=== PATIENT | male | born 1970 | race African-American/Black ===

== ENCOUNTER 2018-03-04 19:46 | Emergency (ER) | payer SELFPAY ==
[~2018-03-04] VITALS: Ht 167.6 cm; Wt 81.6 kg
[2018-03-04] MEDS ORDERED: NKM (19:55)
[2018-03-04 20:00] VITALS: BP 158/86
[2018-03-04] MEDS ORDERED: Morphine Sulfate 4mg/ml Inj (IV/IM USE ONLY) IVP ONE (20:00)
--- NOTE | 2018-03-04 20:00 | NUR ---
ED Nurse Note: pt brought in by family member, pt c/o n/v and abd pain 10/10 started today couple hours ago, pt denies eating anything abnormal. Pt AA&ox4, gcs=15, skin warm and dry, resp even and unlabored, +n/v, abd tender on palpation, +active bs, will continue to monitor. ERMD notified regarding pt's condition.
--- NOTE | 2018-03-04 20:30 | NUR ---
ED Nurse Note: pt reports pain and nausea is better now, pt stopped vomiting, VSS, resp even and unlabored, will continue to monitor.
[2018-03-04 20:49] LABS: HEMATOCRIT 41.2 % (42.0-52.0); HEMOGLOBIN 14.2 G/DL (14.2-18.0); MEAN CORPUSCULAR VOLUME 96 FL (80-99); PLATELET COUNT 316 K/UL (150-450); RED BLOOD COUNT 4.28 M/UL (4.70-6.10); RED CELL DISTRIBUTION WIDTH 10.8 % (11.6-14.8); WHITE BLOOD COUNT 10.6 K/UL (4.8-10.8)
[2018-03-04 20:51] LABS: APPEARANCE,URINE CLEAR; BILIRUBIN, URINE NEGATIVE (NEGATIVE); COLOR,URINE PALE YELLOW; GLUCOSE, URINE (UA) NEGATIVE (NEGATIVE); KETONES,URINE 2+ (NEGATIVE); LEUKOCYTE ESTERASE ,URINE 1+ (NEGATIVE); NITRITE,URINE NEGATIVE (NEGATIVE); PH,URINE 8 (4.5-8.0); PROTEIN,URINE 2+ (NEGATIVE); UROBILINOGEN,URINE NORMAL MG/DL (0.0-1.0)
[2018-03-04 20:52] LABS: LYMPHOCYTES % (AUTO) 8.6 % (20.0-45.0); MONOCYTES % (AUTO) 2.3 % (1.0-10.0); NEUTROPHILS % (AUTO) 88.2 % (45.0-75.0)
[2018-03-04 21:00] VITALS: BP 155/86
[2018-03-04 21:01] LABS: ANION GAP 11 mmol/L (5-15); BLOOD UREA NITROGEN 10 mg/dL (7-18); CALCIUM 9.7 MG/DL (8.5-10.1); CARBON DIOXIDE 25 MMOL/L (21-32); CHLORIDE 102 MMOL/L (98-107); CREATININE 1.3 MG/DL (0.55-1.30); POTASSIUM 3.7 MMOL/L (3.5-5.1); SODIUM 138 MMOL/L (136-145)
[2018-03-04 21:13] LABS: ALANINE AMINOTRANSFERASE 26 U/L (12-78); ALBUMIN 4.4 G/DL (3.4-5.0); ALBUMIN/GLOBULIN RATIO 1.2 (1.0-2.7); ALKALINE PHOSPHATASE 65 U/L (46-116); ASPARTATE AMINO TRANSFERASE 14 U/L (15-37)
--- NOTE | 2018-03-04 21:30 | NUR ---
ED Nurse Note: pt is resting in bed, vss, iv intact and patent, will cont monitor.
--- NOTE | 2018-03-04 21:31 | NUR ---
ED Nurse Note: pending discharge, waiting on drug screen urine.
--- NOTE | 2018-03-04 21:48 | Emergency Room Report ---
History of Present Illness General Chief Complaint: Abdominal Pain Source: Patient Present Illness HPI The patient presents with several hours of epigastric pain and vomiting. He denies coffee grounds or hematemesis. He also states his stools have been dark. He denies any fevers or chills. He has been around people who have been smoking cannabis. He denies alcohol ingestion. The pain is burning and epigastric not radiating to his back. He feels better laying on his stomach. He is not taking any analgesics or other medication to help with the pain. He states this is happened once before. He is vague on how it was treated. No chest pain, palpitations, dysuria, shortness of breath, depression, visual changes, headache. The pain is causing some anxiety. Patient denies major medical problems. Allergies: Coded Allergies: No Known Allergies (Unverified , 03/04/18) Patient History Past Medical History: see triage record Social History: Reports: smoking, drug use Social History Narrative From home -brought by friends Reviewed Nursing Documentation: PMH: Agreed; PSxH: Agreed Nursing Documentation-PMH Past Medical History: No Stated History Review of Systems All Other Systems: negative except mentioned in HPI Physical Exam Vital Signs Date Time Temp Pulse Resp B/P (MAP) Pulse Ox O2 Delivery O2 Flow Rate FiO2 03/04/18 19:53 98.4 90 20 158/86 95 Room Air Sp02 EP Interpretation: reviewed, normal General Appearance: GCS 15, non-toxic, mild distress, other - Smells of cannabis Head: normocephalic Eyes: bilateral eye PERRL, bilateral eye Scleral Injection ENT: moist mucus membranes Neck: supple Respiratory: lungs clear, normal breath sounds Cardiovascular #1: regular rate, rhythm Cardiovascular #2: 2+ radial (R) Gastrointestinal: normal inspection, normal bowel sounds, soft, no mass, non- distended, no guarding, no rebound, tenderness - Epigastric, scaphoid Genitourinary: no CVA tenderness Musculoskeletal: back normal, normal range of motion Neurologic: alert, oriented x3, grossly normal Psychiatric: mood/affect normal Skin: normal inspection, warm/dry Medical Decision Making Diagnostic Impression: Primary Impression: Vomiting Qualified Codes: R11.2 - Nausea with vomiting, unspecified Additional Impression: Epigastric pain ER Course Patient presents with epigastric pain and vomiting. Differential includes gastritis, gastroenteritis, peptic ulcer disease, pancreatitis, GERD amongst others. Evaluation will be with labs. Treatment will be with IV hydration, Zofran, Pepcid and morphine. Labs was normal white count, hemoglobin and hematocrit. CMP and lipase normal. Urinalysis negative. Urine tox positive for THC. Improved with treatment. Patient advised to avoid cannabis, aspirin alcohol Advil Aleve [place] and aspirin. Patient stable for outpatient observation and treatment. Laboratory Tests Test 03/04/18 20:35 03/04/18 20:50 White Blood Count 10.6 K/UL (4.8-10.8) Red Blood Count 4.28 M/UL (4.70-6.10) L Hemoglobin 14.2 G/DL (14.2-18.0) Hematocrit 41.2 % (42.0-52.0) L Mean Corpuscular Volume 96 FL (80-99) Mean Corpuscular Hemoglobin 33.2 PG (27.0-31.0) H Mean Corpuscular Hemoglobin Concent 34.5 G/DL (32.0-36.0) Red Cell Distribution Width 10.8 % (11.6-14.8) L Platelet Count 316 K/UL (150-450) Mean Platelet Volume 6.7 FL (6.5-10.1) Neutrophils (%) (Auto) 88.2 % (45.0-75.0) H Lymphocytes (%) (Auto) 8.6 % (20.0-45.0) L Monocytes (%) (Auto) 2.3 % (1.0-10.0) Eosinophils (%) (Auto) 0.0 % (0.0-3.0) Basophils (%) (Auto) 1.0 % (0.0-2.0) Urine Color Pale yellow Urine Appearance Clear Urine pH 8 (4.5-8.0) Urine Specific [place] 1.010 (1.005-1.035) Urine Protein 2+ (NEGATIVE) H Urine Glucose (UA) Negative (NEGATIVE) Urine Ketones 2+ (NEGATIVE) H Urine Blood Negative (NEGATIVE) Urine Nitrite Negative (NEGATIVE) Urine Bilirubin Negative (NEGATIVE) Urine Urobilinogen Normal MG/DL (0.0-1.0) Urine Leukocyte Esterase 1+ (NEGATIVE) H Urine RBC 0-2 /HPF (0 - 0) H Urine WBC 2-4 /HPF (0 - 0) Urine Squamous Epithelial Cells Occasional /LPF Urine Bacteria None /HPF (NONE) Urine Mucus Few /LPF (NONE/OCC) H Sodium Level 138 MMOL/L (136-145) Potassium Level 3.7 MMOL/L (3.5-5.1) Chloride Level 102 MMOL/L (98-107) Carbon Dioxide Level 25 MMOL/L (21-32) Anion Gap 11 mmol/L (5-15) Blood Urea Nitrogen 10 mg/dL (7-18) Creatinine 1.3 MG/DL (0.55-1.30) Estimate Glomerular Filtration Rate 59.4 mL/min (>60) Glucose Level 131 MG/DL (74-106) H Calcium Level 9.7 MG/DL (8.5-10.1) Total Bilirubin 1.0 MG/DL (0.2-1.0) Aspartate Amino Transferase (AST) 14 U/L (15-37) L Alanine Aminotransferase (ALT) 26 U/L (12-78) Alkaline Phosphatase 65 U/L (46-116) Total Protein 8.0 G/DL (6.4-8.2) Albumin 4.4 G/DL (3.4-5.0) Globulin 3.6 g/dL Albumin/Globulin Ratio 1.2 (1.0-2.7) Lipase 176 U/L (73-393) Urine Opiates Screen Negative (NEGATIVE) Urine Barbiturates Screen Negative (NEGATIVE) Phencyclidine (PCP) Screen Negative (NEGATIVE) Urine Amphetamines Screen Negative (NEGATIVE) Urine Benzodiazepines Screen Negative (NEGATIVE) Urine Cocaine Screen Negative (NEGATIVE) Urine Marijuana (THC) Screen Positive (NEGATIVE) H Prothrombin Time 11.0 SEC (9.30-11.50) Prothrombin Time INR 1.0 (0.9-1.1) PTT 29 SEC (23-33) Chest X-Ray Diagnostic Results Chest X-Ray Diagnostic Results : Chest X-Ray Ordered: Yes # of Views/Limited/Complete: 1 View Indication: Other EP Interpretation: Yes Interpretation: no consolidation, no effusion, no pneumothorax Impression: No acute disease Electronically Signed by: Electronically signed by Ajit Altman MD Other X-Ray Diagnostic Results Other X-Ray Diagnostic Results : X-Ray ordered: Abdomen # of Views/Limited Vs Complete: 2 View Indication: Pain Interpretation: nonspecific bowel gas, no sbo, other - No masses Impression: No acute disease Electronically Signed by: Electronically signed by Ajit Altman MD Last Vital Signs Date Time Temp Pulse Resp B/P (MAP) Pulse Ox O2 Delivery O2 Flow Rate FiO2 03/04/18 23:10 98.2 68 18 144/78 100 Room Air Status: improved Disposition: HOME, SELF-CARE Condition: Improved Scripts Famotidine (PEPCID AC) 20 Mg Tablet 20 MG PO DAILY, #20 TAB Prov: Ajit Altman MD 03/04/18 Tramadol Hcl* (ULTRAM*) 50 Mg Tablet 50 MG ORAL Q6H PRN for For Pain, #6 TAB 0 Refills Prov: Ajit Altman MD 03/04/18 Ondansetron Odt* (ZOFRAN ODT*) 4 Mg Tab.rapdis 4 MG BC EVERY 8 HOURS, #6 TAB 0 Refills Prov: Ajit Altman MD 03/04/18 Referrals: NOT CHOSEN IPA/,REFERRING (PCP) Ajit Altman MD Mar 04, 2018 21:48
[2018-03-04 22:00] VITALS: BP 146/68
[2018-03-04] MEDS ORDERED: ONDANSETRON ODT4 MG BC (22:11)
[2018-03-04] MEDS ORDERED: TRAMADOL HCL50 MG ORAL (22:11)
[2018-03-04] MEDS ORDERED: PEPCID AC20 M2 PO (22:11)
[2018-03-04 22:56] VITALS: BP 144/82
[2018-03-04 23:10] VITALS: BP 144/78
--- NOTE | 2018-03-04 23:12 | NUR ---
ED Nurse Note: pt states his niece will pick pt up
--- NOTE | 2018-03-04 23:12 | NUR ---
ED Nurse Note: Pt discharge instruction provided w/ prescription, id band removed, iv d/c and dressing applied, pt tolerated well, pt education done via discussion and handout, pt verbalized understanding and agrees with plan, pt advised to follow up with pcp regarding pt's condition, pt advised to return to ed if s/s worsen or new s/s develop.
--- NOTE | 2018-03-06 15:48 | Diagnostic Imaging Report ---
Indication: Chest pain Comparison: None A single view chest radiograph was obtained. Findings: Cardiomediastinal appearance is within normal limits for age. The lungs are clear but hypoinflated. Pulmonary vascularity is appropriate. The diaphragmatic contour is smooth and costophrenic angles are sharp. No pleural effusions are identified. The bones are unremarkable. Impression: No acute findings with some limitations
--- NOTE | 2018-03-06 15:49 | Diagnostic Imaging Report ---
Indication: Abdominal pain Comparison: None Single view of the abdomen obtained Findings: Bowel gas pattern is nonspecific. No mass, ectopic calcifications, or abnormal gas collections are identified. The bones are unremarkable. Impression: No acute findings
== END 2018-03-04 23:16 | disposition home or self-care (01) ==
LOC: EMR 20:10
DX: R11.10 Vomiting, unspecified (principal); R10.13 Epigastric pain; F17.200 Nicotine dependence, unspecified, uncomplicated; F12.90 Cannabis use, unspecified, uncomplicated
CPT/HCPCS: 36415; 71045; 74018; 80053; 80307; 81003; 83690; 85025; 85610; 85730; 96361; 96374; 96375; 99284; J2270; J2405; S0028

== ENCOUNTER 2018-03-31 17:12 | Inpatient (IN) | payer SELFPAY ==
[~2018-03-31] VITALS: Ht 167.6 cm; Wt 67.6 kg
[~2018-03-31 17:12] MED LIST: NKM; ONDANSETRON ODT4 MG BC; PEPCID AC20 M2 PO; TRAMADOL HCL50 MG ORAL
--- NOTE | 2018-03-31 17:20 | NUR ---
ED Nurse Note: Pt walked in c/o n/v and abd pain x2 days but reports this is chronic and has been here before, pt states he didn't go see his pcp after discharged last time. Pt AA&ox4, gcs=15, skin warm and dry, resp even and unlabored, +n, -v/d at this time, vss, will cont monitor.
[2018-03-31] MEDS ORDERED: Haloperidol Lactate 5 MG in D5W 55 ML IVPB ONE (17:30)
--- NOTE | 2018-03-31 17:32 | Emergency Room Report ---
History of Present Illness General Chief Complaint: Nausea, Vomiting, and Diarrhea Source: Patient Present Illness HPI Patient is a 48-year-old male who presented after increased nausea vomiting and diarrhea. Patient reports of increased abdominal discomfort in the epigastric area which he describes as a sharp pain. He had associated vomiting as well as a burning sensation in his chest. Patient reports having similar symptoms in the past. He reports having multiple episodes of vomiting. He denies any fever. He denies any black or bloody stools. He denies any alcohol use. Patient states he is discontinued marijuana since last hospital visit for the same symptoms. Allergies: Coded Allergies: No Known Allergies (Unverified , 03/04/18) Patient History Past Medical History: see triage record Reviewed Nursing Documentation: PMH: Agreed; PSxH: Agreed Nursing Documentation-PMH Past Medical History: No Stated History Review of Systems All Other Systems: negative except mentioned in HPI Physical Exam Vital Signs Date Time Temp Pulse Resp B/P (MAP) Pulse Ox O2 Delivery O2 Flow Rate FiO2 03/31/18 17:15 98.2 65 18 155/90 99 Room Air Sp02 EP Interpretation: reviewed, normal General Appearance: normal inspection, well appearing, no apparent distress, alert, GCS 15 Head: atraumatic ENT: normal ENT inspection, hearing grossly normal, normal voice Neck: normal inspection, full range of motion, supple, no bony tend Respiratory: normal inspection, lungs clear, normal breath sounds, no respiratory distress, no retraction, no wheezing Cardiovascular #1: regular rate, rhythm, no edema Gastrointestinal: normal inspection, normal bowel sounds, non tender, soft, no guarding, no hernia Genitourinary: no CVA tenderness Musculoskeletal: normal inspection, back normal, normal range of motion Neurologic: normal inspection, alert, oriented x3, responsive, director of manufacturing III-XII nml as tested, speech normal Psychiatric: normal inspection, judgement/insight normal, mood/affect normal Skin: normal inspection, normal color, no rash Medical Decision Making Diagnostic Impression: Primary Impression: Pancreatitis ER Course Patient presented for abdominal pain. Differential diagnoses included ischemic bowel, appendicitis, perforated viscus, abdominal aortic aneurysm, inferior myocardial infarction, viral gastroenteritis. Because of complexity of patient' s case laboratory testing and imaging studies were ordered.CT imaging of the abdomen pelvis showed small amount of pelvic free fluid. Pancreas was unremarkable. Laboratory testing was notable for elevated lipase consistent with pancreatitis. Patient denies any alcohol use. He had previous episodes of what appeared to be marijuana hyperemesis. Patient was given IV Haldol with improvement in his nausea. Patient denies recent marijuana use. Dr. Ajit Dave was contacted for inpatient management. Labs Test 03/31/18 18:05 White Blood Count 11.1 K/UL (4.8-10.8) Red Blood Count 4.48 M/UL (4.70-6.10) Hemoglobin 14.7 G/DL (14.2-18.0) Hematocrit 42.6 % (42.0-52.0) Mean Corpuscular Volume 95 FL (80-99) Mean Corpuscular Hemoglobin 32.8 PG (27.0-31.0) Mean Corpuscular Hemoglobin Concent 34.6 G/DL (32.0-36.0) Red Cell Distribution Width 10.3 % (11.6-14.8) Platelet Count 345 K/UL (150-450) Mean Platelet Volume 5.7 FL (6.5-10.1) Neutrophils (%) (Auto) 75.5 % (45.0-75.0) Lymphocytes (%) (Auto) 18.5 % (20.0-45.0) Monocytes (%) (Auto) 4.7 % (1.0-10.0) Eosinophils (%) (Auto) 0.0 % (0.0-3.0) Basophils (%) (Auto) 1.2 % (0.0-2.0) Urine Color Yellow Urine Appearance Clear Urine pH 6 (4.5-8.0) Urine Specific [place] 1.025 (1.005-1.035) Urine Protein 1+ (NEGATIVE) Urine Glucose (UA) Negative (NEGATIVE) Urine Ketones 3+ (NEGATIVE) Urine Blood 1+ (NEGATIVE) Urine Nitrite Negative (NEGATIVE) Urine Bilirubin Negative (NEGATIVE) Urine Urobilinogen 1 MG/DL (0.0-1.0) Urine Leukocyte Esterase 1+ (NEGATIVE) Urine RBC 0-2 /HPF (0 - 0) Urine WBC 2-4 /HPF (0 - 0) Urine Squamous Epithelial Cells None /LPF (NONE/OCC) Urine Bacteria Occasional /HPF (NONE) Sodium Level 135 MMOL/L (136-145) Potassium Level 3.2 MMOL/L (3.5-5.1) Chloride Level 95 MMOL/L (98-107) Carbon Dioxide Level 29 MMOL/L (21-32) Anion Gap 11 mmol/L (5-15) Blood Urea Nitrogen 14 mg/dL (7-18) Creatinine 1.2 MG/DL (0.55-1.30) Estimat Glomerular Filtration Rate > 60 mL/min (>60) Glucose Level 110 MG/DL (74-106) Calcium Level 9.3 MG/DL (8.5-10.1) Total Bilirubin 1.0 MG/DL (0.2-1.0) Aspartate Amino Transf (AST/SGOT) 15 U/L (15-37) Alanine Aminotransferase (ALT/SGPT) 21 U/L (12-78) Alkaline Phosphatase 71 U/L (46-116) Troponin I 0.022 ng/mL (0.000-0.056) Total Protein 7.9 G/DL (6.4-8.2) Albumin 4.1 G/DL (3.4-5.0) Globulin 3.8 g/dL Albumin/Globulin Ratio 1.1 (1.0-2.7) Lipase 1394 U/L (73-393) Last Vital Signs Date Time Temp Pulse Resp B/P (MAP) Pulse Ox O2 Delivery O2 Flow Rate FiO2 03/31/18 17:15 98.2 65 18 155/90 99 Room Air Status: improved Disposition: ADMITTED INPATIENT Condition: Stable Huy Acevedo MD Mar 31, 2018 17:32
[2018-03-31 18:08] VITALS: BP 147/89
[2018-03-31 18:26] LABS: APPEARANCE,URINE CLEAR; BILIRUBIN, URINE NEGATIVE (NEGATIVE); GLUCOSE, URINE (UA) NEGATIVE (NEGATIVE); KETONES,URINE 3+ (NEGATIVE); LEUKOCYTE ESTERASE ,URINE 1+ (NEGATIVE); NITRITE,URINE NEGATIVE (NEGATIVE); PH,URINE 6 (4.5-8.0); PROTEIN,URINE 1+ (NEGATIVE); UROBILINOGEN,URINE 1 MG/DL (0.0-1.0)
[2018-03-31 18:31] LABS: COLOR,URINE YELLOW
[2018-03-31 18:33] LABS: BASOPHILS % (AUTO) 1.2 % (0.0-2.0); HEMATOCRIT 42.6 % (42.0-52.0); HEMOGLOBIN 14.7 G/DL (14.2-18.0); LYMPHOCYTES % (AUTO) 18.5 % (20.0-45.0); MEAN CORPUSCULAR VOLUME 95 FL (80-99); MONOCYTES % (AUTO) 4.7 % (1.0-10.0); NEUTROPHILS % (AUTO) 75.5 % (45.0-75.0); PLATELET COUNT 345 K/UL (150-450); RED BLOOD COUNT 4.48 M/UL (4.70-6.10); RED CELL DISTRIBUTION WIDTH 10.3 % (11.6-14.8); WHITE BLOOD COUNT 11.1 K/UL (4.8-10.8)
[2018-03-31 18:45] LABS: ANION GAP 11 mmol/L (5-15); BLOOD UREA NITROGEN 14 mg/dL (7-18); CALCIUM 9.3 MG/DL (8.5-10.1); CARBON DIOXIDE 29 MMOL/L (21-32); CHLORIDE 95 MMOL/L (98-107); CREATININE 1.2 MG/DL (0.55-1.30); POTASSIUM 3.2 MMOL/L (3.5-5.1); SODIUM 135 MMOL/L (136-145)
[2018-03-31 18:49] LABS: ALANINE AMINOTRANSFERASE 21 U/L (12-78); ALBUMIN 4.1 G/DL (3.4-5.0); ALBUMIN/GLOBULIN RATIO 1.1 (1.0-2.7); ALKALINE PHOSPHATASE 71 U/L (46-116); ASPARTATE AMINO TRANSFERASE 15 U/L (15-37)
[2018-03-31] MEDS ORDERED: Morphine Sulfate 4mg/ml Inj (IV/IM USE ONLY) IVP ONE (19:00)
[2018-03-31] MEDS ORDERED: Isovue-300 100ml vial INJ PRN (20:00)
[2018-03-31 20:08] VITALS: BP 144/89
--- NOTE | 2018-03-31 20:22 | NUR ---
ED Nurse Note: PT off to CT.
--- NOTE | 2018-03-31 21:04 | NUR ---
ED Nurse Note: pt back from CT, reports pain is better, VSS, will cont monitor. denies n/v/d at this time.
--- NOTE | 2018-03-31 21:08 | NUR ---
ED Nurse Note: belonging list completed, pt refused to go over wallet.
--- NOTE | 2018-03-31 21:13 | NUR ---
ED Nurse Note: Report given to Kylah from MS floor to continue care.
--- NOTE | 2018-03-31 22:17 | NUR ---
ED Nurse Note: pt transferred to VT, all belongings sent with pt, pt vss, resp even and unlabored, no neuro changes, airway intact, ambulatory.
--- NOTE | 2018-03-31 22:20 | NUR ---
NURSE NOTES: ADMITTED 48 YEAR OLD MALE TO ROOM 421 BED 1 VIA GURNEY FROM EMERGENCY ROOM WITH DIAGNOSIS OF PANCREATITIS; ADMITTED UNDER DR. FABIÁN SHEARER. PATIENT NPO UNTIL FURTHER ORDERS FROM MD. VITALS STABLE, AFEBRILE, NO SIGNS AND SYMPTOMS OF ACUTE CARDIO RESPIRATORY DISTRESS/SHORTNESS OF BREATH, DENIES CHEST PAIN, NO PERIPHERAL EDEMA NOTED. BOWEL SOUNDS AUDIBLE, NON TENDER, CURRENT ABDOMINAL PAIN STATUS 7/10, NO REPORT OF DIARRHEA/VOMITING DURING ER STAY. ORIENTATED PATIENT TO ROOM/ENVIRONMENT. SIDE RAILS UP X2 FOR MOBILITY, BED IN LOWEST POSITION FOR SAFETY. CALL LIGHT WITHIN REACH. ENCOURAGED PATIENT TO UTILIZE CALL LIGHT FOR ASSISTANCE, VERBALIZED UNDERSTANDING. FREQUENT ROUNDING FOR SAFETY/NEEDS.
[2018-03-31 22:50] VITALS: BP 139/84
--- NOTE | 2018-03-31 23:00 | NUR ---
NURSE NOTES: TELEPHONE CALL PLACED TO DR. SHEARER FOR ADMITTING ORDERS, LEFT MESSAGE ON EMERGENCY VOICE MAIL, WILL AWAIT RETURN CALL. NAD.
--- NOTE | 2018-03-31 23:49 | NUR ---
NURSE NOTES: FOLLOW UP CALL PLACED TO MD; LEFT SECOND MESSAGE REGARDING ADMITTING ORDERS.
[2018-04-01] VITALS: BP 131/75
[2018-04-01] MEDS ORDERED: Morphine Sulfate 4mg/ml Inj (IV/IM USE ONLY) IVP PRN (00:15)
[2018-04-01] MEDS: NS w/KCl 20mEq 1,000 ML IV SCH ×3 (00:43→13:20)
[2018-04-01 04:00] VITALS: BP 144/89
--- NOTE | 2018-04-01 06:27 | NUR ---
NURSE NOTES: URINE SPECIMEN TO LAB/URINE DRUG SCREEN-
--- NOTE | 2018-04-01 06:28 | NUR ---
NURSE NOTES: RESTED WELL, NO SIGNIFICANT CHANGE OF CONDITION NOTED THROUGHOUT THE NIGHT. SAFETY MAINTAINED. NAD.
--- NOTE | 2018-04-01 07:30 | NUR ---
HAND-OFF: Report given to HOSEA LOCKWOOD.
--- NOTE | 2018-04-01 07:50 | NUR ---
NURSE NOTES: Received patient on bed, awake. IV site intact and patent Bed in low and locked position, call light within reach. No signs of respiratory distress or pain. Room board updated, will continue to monitor.
[2018-04-01 08:00] VITALS: BP 142/86
[2018-04-01 08:36] LABS: BASOPHILS % (AUTO) 1.3 % (0.0-2.0); EOSINOPHILS % (AUTO) 0.3 % (0.0-3.0); HEMATOCRIT 41.7 % (42.0-52.0); HEMOGLOBIN 14.3 G/DL (14.2-18.0); LYMPHOCYTES % (AUTO) 31.3 % (20.0-45.0); MEAN CORPUSCULAR VOLUME 96 FL (80-99); NEUTROPHILS % (AUTO) 60.2 % (45.0-75.0); PLATELET COUNT 362 K/UL (150-450); RED BLOOD COUNT 4.36 M/UL (4.70-6.10); RED CELL DISTRIBUTION WIDTH 10.7 % (11.6-14.8)
[2018-04-01] MEDS ORDERED: Heparin 5000 units/ml inj SUBQ SCH (09:00)
--- NOTE | 2018-04-01 09:20 | NUR ---
NURSE NOTES: Patient refused scheduled heparin dose. Risks versus benefits explained.
[2018-04-01 09:30] LABS: ALANINE AMINOTRANSFERASE 22 U/L (12-78); ALBUMIN 3.7 G/DL (3.4-5.0); ALKALINE PHOSPHATASE 66 U/L (46-116); AMYLASE 135 U/L (25-115); ANION GAP 10 mmol/L (5-15); ASPARTATE AMINO TRANSFERASE 13 U/L (15-37); BILIRUBIN,DIRECT 0.2 MG/DL (0.0-0.3); BILIRUBIN,TOTAL 1.2 MG/DL (0.2-1.0); BLOOD UREA NITROGEN 17 mg/dL (7-18); CALCIUM 9.1 MG/DL (8.5-10.1); CARBON DIOXIDE 25 MMOL/L (21-32); CHLORIDE 100 MMOL/L (98-107); CREATININE 1.1 MG/DL (0.55-1.30); POTASSIUM 3.7 MMOL/L (3.5-5.1); SODIUM 135 MMOL/L (136-145)
--- NOTE | 2018-04-01 10:01 | Diagnostic Imaging Report ---
Clinical Indication: Abdominal pain, increased nausea vomiting and diarrhea Technique: No oral contrast utilized, per emergency room physician request IV administration nonionic contrast. Venous phase spiral acquisition obtained through the abdomen and pelvis. Multiplanar reconstructions were generated. Total dose length product 686.67 mGycm. CTDIvol(s) 9.84,10.89 mGy. Dose reduction achieved using automated exposure control Comparison: none Findings: Normal appendix. No evidence of diverticulosis or diverticulitis. No small bowel distention. No free or loculated intraperitoneal gas or fluid is evident. The distal esophagus, stomach, duodenum are unremarkable. The liver demonstrates multiple subcentimeter low-attenuation lesions which are too small to characterize. The gallbladder, bile ducts, pancreas, spleen, adrenals, kidneys are all unremarkable. No retroperitoneal or mesenteric mass or adenopathy. No pelvic mass or adenopathy. The included lung bases are clear. The bones demonstrate a bone island within the right 11th rib. Impression: No acute or significant abnormality demonstrated Subcentimeter low-attenuation lesions in the liver, too small to characterize, most likely benign simple cysts or bile hamartomas This agrees with the preliminary interpretation provided overnight by Dr. Valentin The CT scanner at [facility] is accredited by the [employer] and the scans are performed using protocols designed to limit radiation exposure to as low as reasonably achievable to attain images of sufficient resolution adequate for diagnostic evaluation.
[2018-04-01 12:00] VITALS: BP 138/82
--- NOTE | 2018-04-01 13:41 | NUR ---
NURSE NOTES: Patient discharged. IV removed and site covered. ID band removed and disposed of. Personal belongings inventoried and sent with patient. Patient needs met and patient kept comfortable at all times.
--- NOTE | 2018-04-01 18:00 | History and Physical Report ---
DATE OF ADMISSION: 03/31/2018 REASON FOR ADMISSION: Abdominal pain and pancreatitis. HISTORY OF PRESENT ILLNESS: This 48-year-old -[place] male, presented to the hospital with nausea, vomiting, and diarrhea of one day's duration. He ate some food at a fast food restaurant and noted the symptoms in the beginning. Thereafter, he had some vomiting and burning sensation in his chest with recurrence, which prompted him to come to the emergency room. He did not have any blood in his emesis or in his stool and he denies alcohol abuse. He has had prior similar symptoms in the past, which were attributed apparently to marijuana use that has since been discontinued. ALLERGIES: None. MEDICATIONS: None. PAST MEDICAL HISTORY: Otherwise unremarkable. REVIEW OF SYSTEMS: Otherwise negative. PHYSICAL EXAMINATION: VITAL SIGNS: Afebrile, blood pressure 155/90, pulse 65, and respirations 18. HEENT: Conjunctivae pink. Oropharynx clear. Sclerae are anicteric. NECK: Supple. LUNGS: Clear. CARDIAC: Regular. Normal S1 and S2 with no murmur. ABDOMEN: Soft. Mild midepigastric tenderness. No guarding or rebound. EXTREMITIES: No clubbing or cyanosis. No edema. NEUROLOGIC: Nonfocal. LABORATORY AND DIAGNOSTIC DATA: CAT scan of the abdomen revealed no abnormalities. Labs notable for white count 11 and hemoglobin 14.7. Urinalysis with 2 to 4 white cells and occasional bacteria. Sodium 135, potassium 3.2, bicarbonate 29, BUN 14, creatinine 1.2, albumin 4.1, and lipase 1394. IMPRESSION: 1. Acute pancreatitis, etiology unclear. 2. Elevated blood pressure, likely secondary to pain and vomiting. 3. Mild dehydration and hypovolemia due to vomiting. 4. Hypokalemia. PLAN: 1. NPO hydration by IV route. 2. Pain control. 3. Potassium replacement. 4. GI consultation. [place] Gomez JOB#: [id number] CC:
--- NOTE | 2018-04-01 20:06 | NUR ---
CASE MANAGEMENT: REVIEW 48/M PRESENTED TO ED FROM HOME CC: NAUSEA . VOMITING . DIARRHEA SI: PANCREATITIS T 97.9 HR 59 RR 17 SAT 144/89 SAT 98% ROOM AIR WBC 11.1 NA 135 K 3.2 AMYLASE 135 LIPASE 13.94 IS: MORPHINE IV X1 HALDOL IV X1 K-DUR PO PEPCID IV X1 PATIENT ADMITTED TO MED/SURG UNIT 03/31/2018 DCP: PATIENT IS FROM HOME
--- NOTE | 2018-04-01 23:00 | Consultation ---
DATE OF CONSULTATION: 04/01/2018 GASTROENTEROLOGY CONSULTATION CHIEF COMPLAINT: I was asked to see this patient by Dr. Ajit Dave for evaluation of abdominal issues. HISTORY OF PRESENT ILLNESS: The patient is a 48-year-old man, who came to the hospital with a 2-day history of abdominal pain. He states he does not drink alcohol and he has no history of gallstones. He took some , this did not improve, and therefore, he came to the hospital. He feels much better now and in fact, his pain is completely gone. He has had a prior episode similar to this in the past, which resolved uneventfully. PAST MEDICAL HISTORY: Otherwise negative. MEDICATIONS: None. ALLERGIES: None. FAMILY HISTORY: Noncontributory. SOCIAL HISTORY: The patient does not drink alcohol, but he does smoke. REVIEW OF SYSTEMS: Otherwise negative. PHYSICAL EXAMINATION: GENERAL: A well-developed and well-nourished man. HEENT: Normocephalic and atraumatic. Sclerae anicteric. NECK: Supple. CHEST: Clear to auscultation. CARDIOVASCULAR: Revealed a regular rate. ABDOMEN: Soft and nontender. EXTREMITIES: No edema. LABORATORY DATA: Noted. ASSESSMENT: This patient presents with abdominal discomfort and elevation in lipase, which is now resolved. He should be started back on his diet and followed conservatively. The patient to undergo an endoscopic ultrasound as an outpatient to evaluate his gallbladder and pancreas area. RECOMMENDATIONS: 1. Advance diet. 2. Discharge if able to tolerate oral intake. 3. Outpatient pancreatic and specialty followup. Shalom North M.D. DR: ARLYN JOB#: [id number] CC:
--- NOTE | 2018-04-02 13:16 | Discharge Summary ---
Discharge Summary Discharge Summary _ DATE OF ADMISSION: 03/31/2018 DATE OF DISCHARGE: 04/01/2018 DISCHARGED BY: Dr. Ajit Dave BLENDER SNUFF: Dr. Shalom North BRIEF HOSPITAL COURSE: Patient is a 48-year-old -[place] male, who presented to the hospital with nausea, vomiting and diarrhea for 1 day duration. He ate food at a fast food restaurant and noted symptoms in the beginning. Thereafter, he had vomiting and burning sensation in the chest with recurrence that prompted him to come to the emergency room. He denied any blood in his emesis or stool. He denied alcohol abuse. He had similar symptoms in the past which were attributed apparently to marijuana use that has since then been discontinued. On evaluation at the ED, blood work showed mild leukocytosis, WBC was 11.1. Hemoglobin and hematocrit were stable. Potassium level was low at 3.2. LFTs were normal. Lipase was elevated to 1394. He had a CT imaging of the abdomen and pelvis that showed small amount of pelvic free fluid. Pancreas, gallbladder , bile ducts, spleen, adrenals and kidneys were all unremarkable. He was then admitted for evaluation of acute pancreatitis. He was placed on n.p.o. He was given IV hydration. He was given pain control. He was given potassium placement. Urine toxicology was positive for THC. GI evaluation was done. Lipase was monitored. Following day, lipase normalized and abdominal discomfort resolved. Diet was advanced. He was advised to undergo an endoscopic ultrasound as an outpatient to evaluate his gallbladder and pancreas. He was eventually discharged home. FINAL DIAGNOSES: Acute pancreatitis, resolved DISPOSITION: Patient was discharged home. DISCHARGE INSTRUCTIONS: Follow-upwith PCP or free clinic in a week. I have been assigned to complete a discharge summary on this account, I was not involved with the patient's management. Charmaine Limon NP Apr 02, 2018 13:16
== END 2018-04-01 13:35 | disposition home or self-care (01) | DRG 440 ==
LOC: EMR 18:02 → 4E 19:40 → EDBEDREQ 20:48 → 4E 04-01 00:20
DX: K85.90 Acute pancreatitis without necrosis or infection, unspecified (principal); E86.0 Dehydration; E86.1 Hypovolemia; E87.6 Hypokalemia
CPT/HCPCS: 36415; 74177; 80048; 80053; 80076; 80307; 81003; 82150; 83690; 83735; 84484; 85025; 86850; 86900; 86901; 96365; 96375; 99285; J8499

== ENCOUNTER 2018-05-10 04:41 | Observation (INO) | payer BC, MEDICAID ==
[~2018-05-10] VITALS: Ht 167.6 cm; Wt 76.7 kg
--- NOTE | 2018-05-10 04:50 | NUR ---
ED Nurse Note: pt ambulated to ed c/o abdominal pain, nausea and vomitting since thursday at 1700. denies diarrhea. vomitted at triage 800ml. AO4. NAD. VSS.
[2018-05-10] MEDS ORDERED: NKM (04:51)
--- NOTE | 2018-05-10 04:57 | Emergency Room Report ---
History of Present Illness General Chief Complaint: Abdominal Pain Source: Patient, Medical Record Present Illness HPI Is a 48-year-old male with a history of recurrent abdominal pain. He presents with chief complaint abdominal pain for last 2 days. Several episode vomiting. No diarrhea. Pain is diffuse in nature. Crampy in nature. He is not a drinker. Denies any fever or chills. Pain is 8 out of 10. Nothing made it better. Eating made it worse. Allergies: Coded Allergies: No Known Allergies (Unverified , 03/04/18) Patient History Past Medical History: see triage record, old chart reviewed Past Surgical History: other Pertinent Family History: none Social History: Denies: smoking Immunizations: other Reviewed Nursing Documentation: PMH: Agreed; PSxH: Agreed Nursing Documentation-PMH Past Medical History: No History, Except For Hx Cardiac Problems: No Hx Cancer: No Hx Gastrointestinal Problems: Yes - ABDOMINAL PAIN, VOMITING Hx Neurological Problems: No Review of Systems Eye: Denies: eye pain, blurred vision ENT: Denies: ear pain, nose congestion, throat swelling Respiratory: Denies: cough, shortness of breath Cardiovascular: Denies: chest pain, palpitations Gastrointestinal: Reports: abdominal pain, nausea, vomiting; Denies: diarrhea Musculoskeletal: Denies: back pain, joint pain Skin: Denies: rash Neurological: Denies: headache, numbness Endocrine: Denies: increased thirst, increased urine Hematologic/Lymphatic: Denies: easy bruising All Other Systems: negative except mentioned in HPI Physical Exam Vital Signs Date Time Temp Pulse Resp B/P (MAP) Pulse Ox O2 Delivery O2 Flow Rate FiO2 05/10/18 04:48 98.6 71 13 140/73 98 Room Air vitals normal Sp02 EP Interpretation: reviewed, normal General Appearance: well appearing, no apparent distress, alert Head: normocephalic, atraumatic Eyes: bilateral eye PERRL, bilateral eye EOMI ENT: hearing grossly normal, normal pharynx Neck: full range of motion, supple, no meningismus Respiratory: chest non-tender, lungs clear, normal breath sounds Cardiovascular #1: regular rate, rhythm, no murmur Gastrointestinal: normal bowel sounds, no mass, no organomegaly, no bruit, non- distended, tenderness - Diffuse Musculoskeletal: back normal, gait/station normal, normal range of motion Neurologic: alert, oriented x3 Psychiatric: mood/affect normal Skin: warm/dry Medical Decision Making Diagnostic Impression: Primary Impression: Pancreatitis Qualified Codes: K85.90 - Acute pancreatitis without necrosis or infection, unspecified Additional Impressions: Abdominal pain Qualified Codes: R10.84 - Generalized abdominal pain Nausea and vomiting in adult UTI (urinary tract infection) Qualified Codes: N30.00 - Acute cystitis without hematuria ER Course Patient with abdominal pain with nausea and vomiting. He does have mildly elevated lipase. Pain is well-controlled now. No vomiting. Color peel. He said his been off of alcohol for 10 years now. No evidence of acute abdomen or obstruction. Lab Results Impression labs with elevated lipase Last Vital Signs Date Time Temp Pulse Resp B/P (MAP) Pulse Ox O2 Delivery O2 Flow Rate FiO2 05/10/18 04:48 98.6 71 13 140/73 98 Room Air Status: improved Disposition: HOME, SELF-CARE Condition: Stable Scripts Ondansetron (Zofran) 4 Mg Tablet 4 MG ORAL Q6H PRN for Nausea & Vomiting, #10 TAB 0 Refills Prov: Jack Kerns MD 05/10/18 Hydrocodone/Acetaminophen 5-325* (HYDROCODONE/ACETAMINOPHEN 5-325*) 1 Each Tablet 1 TAB ORAL Q6H PRN for For Pain, #10 TAB 0 Refills Prov: Jack Kerns MD 05/10/18 Additional Instructions: Follow-up with your DrClare in 2-3 days if not better. Return if worse. Jack Kerns MD May 10, 2018 04:57
[2018-05-10] MEDS ORDERED: Ketorolac 30mg Inj IV ONE (05:00)
[2018-05-10] MEDS ORDERED: Promethazine HCl 25 MG in NS 55 ML IVPB ONE (05:00)
--- NOTE | 2018-05-10 05:00 | NUR ---
ED Nurse Note: IV access established. Blood and urine collected; sent down to lab.
[2018-05-10 05:24] VITALS: BP 140/73
[2018-05-10 05:47] LABS: BASOPHILS % (AUTO) 0.6 % (0.0-2.0); HEMATOCRIT 43.4 % (42.0-52.0); HEMOGLOBIN 14.8 G/DL (14.2-18.0); LYMPHOCYTES % (AUTO) 16.2 % (20.0-45.0); MEAN CORPUSCULAR VOLUME 95 FL (80-99); MONOCYTES % (AUTO) 4.9 % (1.0-10.0); NEUTROPHILS % (AUTO) 78.3 % (45.0-75.0); PLATELET COUNT 302 K/UL (150-450); RED BLOOD COUNT 4.56 M/UL (4.70-6.10); RED CELL DISTRIBUTION WIDTH 10.9 % (11.6-14.8); WHITE BLOOD COUNT 7.3 K/UL (4.8-10.8)
[2018-05-10 05:54] LABS: BILIRUBIN, URINE 1+ (NEGATIVE); GLUCOSE, URINE (UA) NEGATIVE (NEGATIVE); KETONES,URINE 4+ (NEGATIVE); NITRITE,URINE POSITIVE (NEGATIVE); PH,URINE 6 (4.5-8.0); PROTEIN,URINE 3+ (NEGATIVE); UROBILINOGEN,URINE 1 MG/DL (0.0-1.0)
[2018-05-10 05:59] LABS: ANION GAP 11 mmol/L (5-15); BLOOD UREA NITROGEN 16 mg/dL (7-18); CALCIUM 10.2 MG/DL (8.5-10.1); CARBON DIOXIDE 28 MMOL/L (21-32); CHLORIDE 97 MMOL/L (98-107); CREATININE 1.3 MG/DL (0.55-1.30); POTASSIUM 3.8 MMOL/L (3.5-5.1); SODIUM 136 MMOL/L (136-145)
[2018-05-10 06:02] LABS: COLOR,URINE YELLOW
[2018-05-10 06:03] LABS: APPEARANCE,URINE SLIGHTLY CLOUDY; LEUKOCYTE ESTERASE ,URINE 2+ (NEGATIVE)
[2018-05-10 06:09] LABS: ALANINE AMINOTRANSFERASE 18 U/L (12-78); ALBUMIN 4.5 G/DL (3.4-5.0); ALBUMIN/GLOBULIN RATIO 1.1 (1.0-2.7); ALKALINE PHOSPHATASE 69 U/L (46-116); ASPARTATE AMINO TRANSFERASE 34 U/L (15-37); BILIRUBIN,TOTAL 1.1 MG/DL (0.2-1.0)
[2018-05-10 06:13] LABS: BILIRUBIN,DIRECT 0.1 MG/DL (0.0-0.3)
[2018-05-10] MEDS ORDERED: cefTRIAXone 1 GM in NS 55 ML IVPB ONE (06:15)
[2018-05-10] MEDS ORDERED: HYDROCODON-ACE1 EA15 ORAL (06:24)
[2018-05-10] MEDS ORDERED: ZOFRAN4 MG ORAL (06:24)
[2018-05-10] MEDS ORDERED: DiphenhydrAMINE 50mg/ml Inj IVP ONE (07:00)
[2018-05-10] MEDS ORDERED: Metoclopramide 10mg/2ml Inj IVP ONE (07:00)
--- NOTE | 2018-05-10 07:05 | NUR ---
HAND-OFF: Report given to HOSEA Hinojosa. Patient in stable condition. Plan of care endorsed.
--- NOTE | 2018-05-10 07:10 | NUR ---
ED Nurse Note: Per Josh Ruth RN, pt had one vomiting episode, medication given for n/v. Decision for admission at this time. Vital signs stable. Will cont to monitor.
[2018-05-10 08:48] VITALS: BP 127/69
[2018-05-10 10:36] LABS: CHOLESTEROL 153 MG/DL (< 200); HDL CHOLESTEROL 72 MG/DL (40-60); TRIGLYCERIDES 28 MG/DL (30-150)
--- NOTE | 2018-05-10 11:10 | GI Initial Consult Note ---
History of Present Illness General Date patient seen: May 10, 2018 Time patient seen: 11:05 Reason for Hospitalization: Abdominal Pain Referring physician: JANKI Reason for Consultation: Pancreatitis Present Illness HPI Is a 48-year-old male with a history of recurrent abdominal pain. He presents with chief complaint abdominal pain for last 2 days. Several episode vomiting. No diarrhea. Pain is diffuse in nature. Crampy in nature. He is not a drinker. Denies any fever or chills. Pain is 8 out of 10. Nothing made it better. Eating made it worse. GI consulted for pancreatitis. Patient seen, awake alert and oriented x4 no apparent distress. The patient currently has abdominal pain 7 out of 10 which has improved since yesterday. Patient denies any EtOH, drug or tobacco use. Patient denies any recent travels. Patient denies any use of new or daily medication. Patient stated prior to his episode of abdominal pain, he had eaten a lot of greasy chicken. Patient has no history of endoscopic or colonoscopy. Labs reviewed; no leukocytosis, no anemia, no transaminitis, lipase of 516 and positive urine toxicity for marijuana. Home Meds Active Scripts Ondansetron (Zofran) 4 Mg Tablet, 4 MG ORAL Q6H PRN for Nausea & Vomiting, #10 TAB 0 Refills Prov:Jack Kerns MD 05/10/18 Hydrocodone/Acetaminophen 5-325* (HYDROCODONE/ACETAMINOPHEN 5-325*) 1 Each Tablet, 1 TAB ORAL Q6H PRN for For Pain, #10 TAB 0 Refills Prov:Jack Kerns MD 05/10/18 Discontinued Reported Medications No Known Medications* (NKM - No Known Medications*) ., 0 ., 0 Refills 05/10/18 No Known Medications* (NKM - No Known Medications*) ., 0 ., 0 Refills 03/04/18 Discontinued Scripts Famotidine (PEPCID AC) 20 Mg Tablet, 20 MG PO DAILY, #20 TAB Prov:Ajit Altman MD 03/04/18 Tramadol Hcl* (ULTRAM*) 50 Mg Tablet, 50 MG ORAL Q6H PRN for For Pain, #6 TAB 0 Refills Prov:Ajit Altman MD 03/04/18 Ondansetron Odt* (ZOFRAN ODT*) 4 Mg Tab.rapdis, 4 MG BC EVERY 8 HOURS, #6 TAB 0 Refills Prov:Ajit Altman MD 03/04/18 Med list reviewed/reconciled: Yes Allergies: Coded Allergies: No Known Allergies (Unverified , 03/04/18) Patient History History Provided By: Patient, Medical Record PMH Narrative Past Medical History: see triage record, old chart reviewed Past Surgical History: other Pertinent Family History: none Social History: Denies: smoking Immunizations: other Reviewed Nursing Documentation: PMH: Agreed; PSxH: Agreed Nursing Documentation-PMH Past Medical History: No History, Except For Hx Cardiac Problems: No Hx Cancer: No Hx Gastrointestinal Problems: Yes - ABDOMINAL PAIN, VOMITING Hx Neurological Problems: No Social History: Reports: drug use - Positive urine tox for marijuana; Denies: smoking, alcohol use, other Review of Systems All Other Systems: negative except mentioned in HPI Physical Exam Vital Signs Date Time Temp Pulse Resp B/P (MAP) Pulse Ox O2 Delivery O2 Flow Rate FiO2 05/10/18 04:48 98.6 71 13 140/73 98 Room Air Sp02 EP Interpretation: reviewed, normal Labs Laboratory Tests Test 05/10/18 05:00 05/10/18 05:30 Urine Color Yellow Urine Appearance Slightly cloudy Urine pH 6 (4.5-8.0) Urine Specific [place] 1.020 (1.005-1.035) Urine Protein 3+ (NEGATIVE) H Urine Glucose (UA) Negative (NEGATIVE) Urine Ketones 4+ (NEGATIVE) H Urine Blood 2+ (NEGATIVE) H Urine Nitrite Positive (NEGATIVE) H Urine Bilirubin 1+ (NEGATIVE) H Urine Ictotest Negative (NEGATIVE) Urine Urobilinogen 1 MG/DL (0.0-1.0) H Urine Leukocyte Esterase 2+ (NEGATIVE) H Urine RBC 10-15 /HPF (0 - 0) H Urine WBC 30-40 /HPF (0 - 0) H Urine Squamous Epithelial Cells Few /LPF (NONE/OCC) Urine Bacteria Few /HPF (NONE) Urine Coarse Granular Casts 0-2 /LPF (NONE) H Urine Mucus Many /LPF (NONE/OCC) H Triglycerides Level 28 MG/DL (30-150) L Cholesterol Level 153 MG/DL (< 200) LDL Cholesterol 76 mg/dL (<100) HDL Cholesterol 72 MG/DL (40-60) H Cholesterol/HDL Ratio 2.1 (3.3-4.4) L Urine Opiates Screen Negative (NEGATIVE) Urine Barbiturates Screen Negative (NEGATIVE) Phencyclidine (PCP) Screen Negative (NEGATIVE) Urine Amphetamines Screen Negative (NEGATIVE) Urine Benzodiazepines Screen Negative (NEGATIVE) Urine Cocaine Screen Negative (NEGATIVE) Urine Marijuana (THC) Screen Positive (NEGATIVE) H White Blood Count 7.3 K/UL (4.8-10.8) Red Blood Count 4.56 M/UL (4.70-6.10) L Hemoglobin 14.8 G/DL (14.2-18.0) Hematocrit 43.4 % (42.0-52.0) Mean Corpuscular Volume 95 FL (80-99) Mean Corpuscular Hemoglobin 32.4 PG (27.0-31.0) H Mean Corpuscular Hemoglobin Concent 34.1 G/DL (32.0-36.0) Red Cell Distribution Width 10.9 % (11.6-14.8) L Platelet Count 302 K/UL (150-450) Mean Platelet Volume 7.4 FL (6.5-10.1) Neutrophils (%) (Auto) 78.3 % (45.0-75.0) H Lymphocytes (%) (Auto) 16.2 % (20.0-45.0) L Monocytes (%) (Auto) 4.9 % (1.0-10.0) Eosinophils (%) (Auto) 0.0 % (0.0-3.0) Basophils (%) (Auto) 0.6 % (0.0-2.0) Sodium Level 136 MMOL/L (136-145) Potassium Level 3.8 MMOL/L (3.5-5.1) Chloride Level 97 MMOL/L (98-107) L Carbon Dioxide Level 28 MMOL/L (21-32) Anion Gap 11 mmol/L (5-15) Blood Urea Nitrogen 16 mg/dL (7-18) Creatinine 1.3 MG/DL (0.55-1.30) Estimat Glomerular Filtration Rate > 60 mL/min (>60) Glucose Level 117 MG/DL (74-106) H Calcium Level 10.2 MG/DL (8.5-10.1) H Total Bilirubin 1.1 MG/DL (0.2-1.0) H Direct Bilirubin 0.1 MG/DL (0.0-0.3) Aspartate Amino Transf (AST/SGOT) 34 U/L (15-37) Alanine Aminotransferase (ALT/SGPT) 18 U/L (12-78) Alkaline Phosphatase 69 U/L (46-116) Total Protein 8.5 G/DL (6.4-8.2) H Albumin 4.5 G/DL (3.4-5.0) Globulin 4.0 g/dL Albumin/Globulin Ratio 1.1 (1.0-2.7) Lipase 516 U/L (73-393) H General Appearance: well appearing, no apparent distress, alert Head: normocephalic EENT: PERRL/EOMI, normal ENT inspection Neck: supple Respiratory: normal breath sounds, no respiratory distress Cardiovascular: normal rate Gastrointestinal: normal inspection, non tender, soft, normal bowel sounds, non -distended Rectal: deferred Genitourinary: deferred Musculoskeletal: normal inspection, back normal Neurologic: normal inspection, alert, oriented x3, responsive Psychiatric: normal inspection, judgement/insight normal, memory normal Skin: normal inspection, normal color, no rash, warm/dry, palpation normal, well hydrated Lymphatic: normal inspection, no adenopathy Current Medications Current Medications Medications (Trade) Dose Ordered Sig/Pankaj Route PRN Reason Start Time Stop Time Status Last Admin Dose Admin Sodium Chloride 1,000 ml @ 300 mls/hr Q3H20M IV 05/10/18 07:30 06/09/18 07:29 05/10/18 07:30 GI: Plan Problems: (1) Cyclic vomiting syndrome (2) Pancreatitis (3) Nausea and vomiting in adult (4) Abdominal pain (5) Vomiting Plan Urine toxicity positive for marijuana Elevated lipase levels Lipid panel within normal limits Symptomatic treatment at this time Clear liquid diet, advance as tolerated Aggressive IV hydration plus electrolyte correction Zofran as needed, Reglan for persistent vomiting Pain management PPI Avoid marijuana use Trend lipase Discussed with Dr. Faust. Thank you for this patient referral, we will follow. The patient was seen and examined at bedside and all new and available data was reviewed in the patients chart. I agree with the above findings, impression and plan. (Patient seen earlier today. Signature stamp does not reflect patient encounter time.). - MD Saumya Watson,[facility] CenterGermain VYAS May 10, 2018 11:10
[2018-05-10 12:02] VITALS: BP 141/70
[2018-05-10 14:37] VITALS: BP 142/72
--- NOTE | 2018-05-10 14:37 | NUR ---
ED Nurse Note: Patient is still in ER, no distress noted
[2018-05-10 16:15] VITALS: BP 144/77
--- NOTE | 2018-05-10 16:19 | NUR ---
ED Nurse Note: ATTEMPTED TO GIVE TELEPHONE REPORT TO RECEIVING NURSE OF PT. IN ROOM 315. JAYDEN DAVIDSON WILL ASK CN WHO IS ASSIGNED AND WILL CALL BACK
--- NOTE | 2018-05-10 16:38 | NUR ---
ED Nurse Note: attempted to give report, stated the nurse is on lunch break, will call back in 15 minutes
--- NOTE | 2018-05-10 17:00 | NUR ---
TRANSFER TO FLOOR: Patient transferred to Med-Surg as ordered, per . Report given to
--- NOTE | 2018-05-10 17:30 | NUR ---
NURSE NOTES: Patient arrived on unit via gurney. Ambulated to bed without incident. Patient is stable with no s/s acute distress. Patient complains of abdominal pain and discomfort. Patient oriented to room, call light, and unit. patient verbalized understanding. Patient encouraged to use call light for assistance, verbalized understanding. Patient sitting up in chair with call light within reach. Will continue to monitor.
[2018-05-10] MEDS: D5NS 1,000 ML IV SCH (18:08)
--- NOTE | 2018-05-10 19:30 | NUR ---
NURSE NOTES:Patient received from Beti Hernandez Patient in bed when received .IVF Infusing well . patient keep NPO Except ice chips/ meds . patient instructed to use call light when needed . patient verbalized his understanding will continue to monitor
--- NOTE | 2018-05-10 19:30 | NUR ---
HAND-OFF: Report given to Linsey JAVIER. Patient is stable.
[2018-05-10 20:00] VITALS: BP 130/74
--- NOTE | 2018-05-10 20:31 | History and Physical Report ---
DATE OF ADMISSION: 05/10/2018 SOURCE OF INFORMATION: Patient and EMR. HISTORY OF PRESENT ILLNESS: The patient is a 48-year-old male with history of upper abdominal pain. The patient presented with the excruciating pain and nausea for the last two or three days. Initial evaluation in the emergency room showed a stable vital signs. The patient denies any headache. Denies passing any blood in the stool or throwing up any blood. REVIEW OF SYSTEMS: All 14 elements of review of systems reviewed. Pertinent positives and negatives as above. ALLERGIES: NKDA. FAMILY HISTORY: Reviewed and noncontributory. PAST MEDICAL HISTORY: GERD, peptic ulcer disease, otherwise unremarkable. PAST SURGICAL HISTORY: Denies. SOCIAL HISTORY: The patient is . He has 6 children. Denies history of illicit drug abuse, smoking, or alcohol abuse. MEDICATIONS: Current hospital medications including, but not limited to the sodium chloride, IV fluid. IMAGING: Pending. LABORATORY DATA: Labs dated 05/10/2018 showed WBC 7.3 and hemoglobin 14.8. Sodium 136, potassium 3.8, BUN 16, creatinine 1.3, calcium 10.2, and lipase 560. Urine analysis is positive for 30 WBC and 2+ blood. ASSESSMENT: 1. Acute gastritis. 2. UTI. 3. Hematuria. 4. Alcoholism - history. PLAN OF CARE: 1. We will continue with the medical floor admission. 2. We will start the patient on IV antibiotic empirically, pending culture. 3. GI and Infectious Disease have been consulted. Darryn Lange M.D. DR: SONI JOB#: [id number] CC:
--- NOTE | 2018-05-11 | NUR ---
NURSE NOTES:Patient refused vital sign taken ." patient stated 'i want to go to sleep " Gia DAVIS Notified and aware.
--- NOTE | 2018-05-11 01:00 | NUR ---
NURSE NOTES: Patient at 00:00 am c/o nausea an vomiting Zofran 4mg IVP was given by John DAVIS and re assess after with good relief. at patient Asleep during rounds. will continue to monitor.
[2018-05-11 04:00] VITALS: BP 142/82
[2018-05-11] MEDS: D5NS 1,000 ML IV SCH (04:03)
[2018-05-11] MEDS ORDERED: cefTRIAXone 2 GM in NS 110 ML IVPB SCH (05:00)
[2018-05-11] MEDS ORDERED: cefTRIAXone 2 GM in NS 110 ML IVPB ONE (06:00)
[2018-05-11 07:13] LABS: BASOPHILS % (AUTO) 0.9 % (0.0-2.0); EOSINOPHILS % (AUTO) 0.1 % (0.0-3.0); HEMATOCRIT 42.3 % (42.0-52.0); HEMOGLOBIN 14.4 G/DL (14.2-18.0); LYMPHOCYTES % (AUTO) 15.7 % (20.0-45.0); MEAN CORPUSCULAR VOLUME 96 FL (80-99); MONOCYTES % (AUTO) 5.2 % (1.0-10.0); NEUTROPHILS % (AUTO) 78.1 % (45.0-75.0); PLATELET COUNT 308 K/UL (150-450); RED BLOOD COUNT 4.39 M/UL (4.70-6.10); RED CELL DISTRIBUTION WIDTH 10.8 % (11.6-14.8); WHITE BLOOD COUNT 11.5 K/UL (4.8-10.8)
--- NOTE | 2018-05-11 07:34 | NUR ---
HAND-OFF: Report given to VIRIDIANA Hernandez Patient in stable condition.
[2018-05-11 07:42] LABS: ALANINE AMINOTRANSFERASE 20 U/L (12-78); ALBUMIN 3.9 G/DL (3.4-5.0); ALBUMIN/GLOBULIN RATIO 1.1 (1.0-2.7); ALKALINE PHOSPHATASE 60 U/L (46-116); ANION GAP 7 mmol/L (5-15); ASPARTATE AMINO TRANSFERASE 24 U/L (15-37); BILIRUBIN,TOTAL 0.9 MG/DL (0.2-1.0); BLOOD UREA NITROGEN 9 mg/dL (7-18); CALCIUM 8.9 MG/DL (8.5-10.1); CARBON DIOXIDE 31 MMOL/L (21-32); CHLORIDE 98 MMOL/L (98-107); CREATININE 1.2 MG/DL (0.55-1.30); POTASSIUM 3.5 MMOL/L (3.5-5.1); SODIUM 136 MMOL/L (136-145)
[2018-05-11 08:00] VITALS: BP 159/93
--- NOTE | 2018-05-11 08:00 | NUR ---
NURSE NOTES: Received report Linsey JAVIER, pt a/a/o x4 laying in bed with no signs of distress or other issues at this time. IV on the FA gauge#20 running D51/2NS@100ml/hr. NPO x ice chips and meds. call light within reach. plan: possible d/c home today.
[2018-05-11] MEDS ORDERED: Pantoprazole Inj IVP SCH (09:00)
--- NOTE | 2018-05-11 10:00 | NUR ---
NURSE NOTES: Received order to discharge home today as soon as pt is able to tolerate regular diet. I will f/u as needed.
--- NOTE | 2018-05-11 10:56 | GI Progress Note ---
Assessment/Plan Problems: (1) Vomiting ICD Codes: R11.10 - Vomiting, unspecified SNOMED: 558922330 (2) Cyclic vomiting syndrome ICD Codes: G43.A0 - Cyclical vomiting, not intractable SNOMED: 44575998 (3) Pancreatitis ICD Codes: K85.90 - Acute pancreatitis without necrosis or infection, unspecified SNOMED: 36274599 Qualifiers: Qualified Codes: K85.90 - Acute pancreatitis without necrosis or infection, unspecified (4) Nausea and vomiting in adult ICD Codes: R11.2 - Nausea with vomiting, unspecified SNOMED: 27202183 (5) Abdominal pain ICD Codes: R10.9 - Unspecified abdominal pain SNOMED: 19073722 Qualifiers: Qualified Codes: R10.84 - Generalized abdominal pain Status: stable Status Narrative Discussed with Dr. Faust Assessment/Plan Urine toxicity positive for marijuana Elevated lipase levels, resolved Lipid panel within normal liipase levels now normal okay for DC per GI standpoint if tolerates regular diet Symptomatic treatment at this time Aggressive IV hydration plus electrolyte correction Zofran as needed, Reglan for persistent vomiting Pain management PPI Avoid marijuana use Trend lipase The patient was seen and examined at bedside and all new and available data was reviewed in the patients chart. I agree with the above findings, impression and plan. (Patient seen earlier today. Signature stamp does not reflect patient encounter time.). - Blake Faust MD Subjective Subjective Nausea vomiting resolved Denies any abdominal pain at Wants to be discharged Objective Last 24 Hour Vital Signs Date Time Temp Pulse Resp B/P (MAP) Pulse Ox O2 Delivery O2 Flow Rate FiO2 05/11/18 08:00 98.3 52 19 159/93 (115) 97 05/11/18 04:00 97.5 69 19 142/82 (102) 98 05/10/18 21:08 98.8 05/10/18 21:00 Room Air 05/10/18 20:00 98.4 77 19 130/74 (92) 98 77 05/10/18 17:16 Room Air 05/10/18 17:00 98.8 82 19 144/77 98 Room Air 05/10/18 16:15 98.8 77 19 144/77 98 Room Air 05/10/18 14:37 99.0 65 23 142/72 98 Room Air 3/11/19 12:02 99.2 65 23 141/70 98 Room Air Intake and Output 05/10/18 05/11/18 18:59 06:59 Intake Total 300 ml 1110 ml Output Total 2 ml Balance 300 ml 1108 ml Intake IV Total 300 ml 1110 ml Output Emesis 2 ml # Voids 5 Laboratory Tests Test 05/11/18 06:40 White Blood Count 11.5 K/UL (4.8-10.8) #H Red Blood Count 4.39 M/UL (4.70-6.10) L Hemoglobin 14.4 G/DL (14.2-18.0) Hematocrit 42.3 % (42.0-52.0) Mean Corpuscular Volume 96 FL (80-99) Mean Corpuscular Hemoglobin 32.8 PG (27.0-31.0) H Mean Corpuscular Hemoglobin Concent 34.1 G/DL (32.0-36.0) Red Cell Distribution Width 10.8 % (11.6-14.8) L Platelet Count 308 K/UL (150-450) Mean Platelet Volume 7.1 FL (6.5-10.1) Neutrophils (%) (Auto) 78.1 % (45.0-75.0) H Lymphocytes (%) (Auto) 15.7 % (20.0-45.0) L Monocytes (%) (Auto) 5.2 % (1.0-10.0) Eosinophils (%) (Auto) 0.1 % (0.0-3.0) Basophils (%) (Auto) 0.9 % (0.0-2.0) Sodium Level 136 MMOL/L (136-145) Potassium Level 3.5 MMOL/L (3.5-5.1) Chloride Level 98 MMOL/L (98-107) Carbon Dioxide Level 31 MMOL/L (21-32) Anion Gap 7 mmol/L (5-15) Blood Urea Nitrogen 9 mg/dL (7-18) Creatinine 1.2 MG/DL (0.55-1.30) Estimat Glomerular Filtration Rate > 60 mL/min (>60) Glucose Level 118 MG/DL (74-106) H Calcium Level 8.9 MG/DL (8.5-10.1) Total Bilirubin 0.9 MG/DL (0.2-1.0) Aspartate Amino Transf (AST/SGOT) 24 U/L (15-37) Alanine Aminotransferase (ALT/SGPT) 20 U/L (12-78) Alkaline Phosphatase 60 U/L (46-116) Total Protein 7.3 G/DL (6.4-8.2) Albumin 3.9 G/DL (3.4-5.0) Globulin 3.4 g/dL Albumin/Globulin Ratio 1.1 (1.0-2.7) Lipase 375 U/L (73-393) Height (Feet): 5 Height (Inches): 6.00 Weight (Pounds): 169 General Appearance: WD/WN, no apparent distress, alert Cardiovascular: normal rate Respiratory/Chest: normal breath sounds, no respiratory distress Abdominal Exam: normal bowel sounds, non tender, soft Extremities: normal range of motion, non-tender Nancy Kerns NP May 11, 2018 10:56
--- NOTE | 2018-05-11 11:20 | NUR ---
CASE MANAGEMENT:REVIEW 48 YR OLD MALE PRESENTED TO ER CC: ABDOMINAL PAIN, NAUSEA AND VOMITING SINCE SATR=URDAY SI: PANCREATITIS. UTI. N/V 98.6 71 13 140/73 98% ON RA LIPASE+516 URINE(+) THC IS: IV TORADOL 1L NS BOLUS IV ROCEPHIN IV ZOFRAN IV REGLAN IV PEPCID IV BENADRYL URINE CX : TO MED[facility]
--- NOTE | 2018-05-11 11:47 | General Progress Note ---
Assessment/Plan Assessment/Plan S: I am feeling ok O: tolerating PO diet and has BM Exam: Height (Feet): 5 Height (Inches): 6.00 Weight (Pounds): 169 General Appearance: WD/WN, no apparent distress, alert Cardiovascular: normal rate Respiratory/Chest: normal breath sounds, no respiratory distress Abdominal Exam: normal bowel sounds, non tender, soft Extremities: normal range of motion, non-tender Meds: reviewed and reconciled ASSESSMENT: 1. Acute gastritis. 2. UTI. 3. Hematuria. 4. Alcoholism - history. Plan: Ok to followup as o/p Subjective Allergies: Coded Allergies: No Known Allergies (Unverified , 03/04/18) Objective Last 24 Hour Vital Signs Date Time Temp Pulse Resp B/P (MAP) Pulse Ox O2 Delivery O2 Flow Rate FiO2 05/11/18 08:00 98.3 52 19 159/93 (115) 97 05/11/18 04:00 97.5 69 19 142/82 (102) 98 05/10/18 21:08 98.8 05/10/18 21:00 Room Air 05/10/18 20:00 98.4 77 19 130/74 (92) 98 77 05/10/18 17:16 Room Air 05/10/18 17:00 98.8 82 19 144/77 98 Room Air 05/10/18 16:15 98.8 77 19 144/77 98 Room Air 05/10/18 14:37 99.0 65 23 142/72 98 Room Air 05/10/18 12:02 99.2 65 23 141/70 98 Room Air Intake and Output 05/10/18 05/11/18 18:59 06:59 Intake Total 300 ml 1110 ml Output Total 2 ml Balance 300 ml 1108 ml Intake IV Total 300 ml 1110 ml Output Emesis 2 ml # Voids 5 Laboratory Tests 05/11/18 06:40: White Blood Count 11.5#H, Red Blood Count 4.39L, Hemoglobin 14.4, Hematocrit 42.3, Mean Corpuscular Volume 96, Mean Corpuscular Hemoglobin 32.8H, Mean Corpuscular Hemoglobin Concent 34.1, Red Cell Distribution Width 10.8L, Platelet Count 308, Mean Platelet Volume 7.1, Neutrophils (%) (Auto) 78.1H, Lymphocytes (%) (Auto) 15.7L, Monocytes (%) (Auto) 5.2, Eosinophils (%) (Auto) 0.1, Basophils (%) (Auto) 0.9, Sodium Level 136, Potassium Level 3.5, Chloride Level 98, Carbon Dioxide Level 31, Anion Gap 7, Blood Urea Nitrogen 9, Creatinine 1.2, Estimat Glomerular Filtration Rate > 60, Glucose Level 118H, Calcium Level 8.9, Total Bilirubin 0.9, Aspartate Amino Transf (AST/SGOT) 24, Alanine Aminotransferase (ALT/SGPT) 20, Alkaline Phosphatase 60, Total Protein 7.3, Albumin 3.9, Globulin 3.4, Albumin/Globulin Ratio 1.1, Lipase 375 Height (Feet): 5 Height (Inches): 6.00 Weight (Pounds): 169 Darryn Lange MD May 11, 2018 11:47
[2018-05-11 12:00] VITALS: BP 132/78
[2018-05-11] MEDS ORDERED: D5NS 1000ml IV ONE (13:29)
[2018-05-11] MEDS ORDERED: Tubing IV Secondary IV ONE (13:29)
--- NOTE | 2018-05-11 13:36 | NUR ---
NURSE NOTES: Received order to d/c home today. discharge instructions and belongings given to patient as well as RX for Zofran 4mg PO Q6H PRN #30 and also Ciprofloxacin 500mg PO BID #20. pt stated that will go to his regular pharmacy to fill out RX. IV removed prior to d/c. pt stated that has his car at the garage and will drive home since he stated that doesn't have any one to help him. pt left the floor via w/c with no signs of distress or other issues at this time. I will f/u as needed.
--- NOTE | 2018-05-14 15:55 | Discharge Summary ---
Discharge Summary Discharge Summary _ DATE OF ADMISSION: 05/10/2018 DATE OF DISCHARGE: 05/11/2018 DISCHARGED BY: Dr. Darryn Lange CONSULTANTS: Dr. Prosper Faust BRIEF HOSPITAL COURSE: Patient is a 48-year-old male, with history of upper abdominal pain. The patient had excruciating pain and nausea for 2-3 days. He had several episodes of vomiting. There was no diarrhea. Pain was diffuse and crampy in nature. Pain scale was 8 out of 10. Eating made it worse, nothing made it better. He denied fever or chills. He has medical history significant for GERD, and peptic ulcer disease. On evaluation at ED, vital signs were stable. Blood work did not show any leukocytosis, hemoglobin and hematocrit were stable. Electrolytes were normal. Total bilirubin was elevated to 1.1. LFTs were normal. Lipase was elevated to 516. Triglyceride was 28. Urinalysis showed 3+ protein, 4+ ketones, 2+ blood, positive nitrite, 1+ bilirubin, 2+ leukocyte esterase, 10-15 urine RBC and 30-40 urine WBC. Urine toxicology screen was positive for marijuana. He continued vomiting while at the ER. He was given Reglan and Benadryl with Pepcid. He was then admitted under observation. He was placed on n.p.o. He was given IV hydration. He was started on IV ceftriaxone. He was given symptomatic treatment with Zofran. He was given proton pump inhibitors. Diet was advanced. Urine culture showed growth of mixed gram-positive organisms. He was counseled against marijuana use. Patient was tolerating diet and was having bowel movements. Lipase normalized. He was eventually cleared for discharge home to follow-up as outpatient. FINAL DIAGNOSES: Acute gastritis Urinary tract infection Hematuria Alcoholism- history Acute pancreatitis Cyclic vomiting syndrome Marijuana use DISPOSITION: Patient was discharged home. DISCHARGE MEDICATIONS: Refer to Discharge Medication List. DISCHARGE INSTRUCTIONS: Follow-up in a week. I have been assigned to complete a discharge summary on this account, I was not involved with the patient's management. Charmaine Limon NP May 14, 2018 15:55
--- NOTE | 2018-05-17 10:14 | NUR ---
*-* INSURANCE*-*- ALL CLINICALS HAVE BEEN FAXED TO: [employer] F:[phone] NO CALL BACK NUMBER PROVIDED
== END 2018-05-11 13:30 | disposition home or self-care (01) ==
LOC: EMR 05:14 → 3E 07:17 → INTOOBSV 07:17 → EDBEDREQ 16:09
DX: K29.00 Acute gastritis without bleeding (principal); K85.90 Acute pancreatitis without necrosis or infection, unspecified; G43.A0 Cyclical vomiting, in migraine, not intractable; N39.0 Urinary tract infection, site not specified; B96.89 Other specified bacterial agents as the cause of diseases classified elsewhere; R31.9 Hematuria, unspecified; F10.21 Alcohol dependence, in remission; K21.9 Gastro-esophageal reflux disease without esophagitis; F12.90 Cannabis use, unspecified, uncomplicated; Z87.11 Personal history of peptic ulcer disease
CPT/HCPCS: 36415; 80053; 80061; 80307; 81003; 82248; 83690; 85025; 87086; 96361; 96365; 96367; 96375; 99284; C9113; G0378; J0696; J1200; J1885; J2405; J2550; J2765; S0028

== ENCOUNTER 2018-08-02 22:17 | Emergency (ER) | payer BC, MEDICAID ==
[~2018-08-02] VITALS: Ht 167.6 cm; Wt 65.8 kg
[~2018-08-02 22:17] MED LIST changes: +HYDROCODON-ACE1 EA15 ORAL; +ZOFRAN4 MG ORAL
--- NOTE | 2018-08-02 22:28 | NUR ---
ED Nurse Note: Receieved report. Pt from home, AAOx4, c/o abdominal pain, n/v/d x2 days. Will assess and carry out ER MD's orders.
[2018-08-02 22:30] VITALS: BP 138/74
[2018-08-02 23:47] VITALS: BP 156/79
[2018-08-03] MEDS ORDERED: Morphine Sulfate 4mg/ml Inj (IV USE ONLY) IVP ONE (00:15)
[2018-08-03 00:49] LABS: HEMATOCRIT 42.1 % (42.0-52.0); HEMOGLOBIN 14.9 G/DL (14.2-18.0); MEAN CORPUSCULAR VOLUME 95 FL (80-99); PLATELET COUNT 381 K/UL (150-450); RED BLOOD COUNT 4.42 M/UL (4.70-6.10); RED CELL DISTRIBUTION WIDTH 11.1 % (11.6-14.8)
[2018-08-03 01:03] LABS: ANION GAP 12 mmol/L (5-15); BLOOD UREA NITROGEN 10 mg/dL (7-18); CALCIUM 10.1 MG/DL (8.5-10.1); CARBON DIOXIDE 28 MMOL/L (21-32); CHLORIDE 96 MMOL/L (98-107); CREATININE 1.2 MG/DL (0.55-1.30); POTASSIUM 3.3 MMOL/L (3.5-5.1); SODIUM 136 MMOL/L (136-145)
[2018-08-03 01:14] LABS: ALANINE AMINOTRANSFERASE 30 U/L (12-78); ALBUMIN 4.6 G/DL (3.4-5.0); ALBUMIN/GLOBULIN RATIO 1.2 (1.0-2.7); ALKALINE PHOSPHATASE 69 U/L (46-116); ASPARTATE AMINO TRANSFERASE 16 U/L (15-37); BILIRUBIN,TOTAL 1.1 MG/DL (0.2-1.0)
[2018-08-03 01:15] LABS: BILIRUBIN,DIRECT 0.2 MG/DL (0.0-0.3)
[2018-08-03 02:16] LABS: APPEARANCE,URINE CLEAR; BILIRUBIN, URINE NEGATIVE (NEGATIVE); COLOR,URINE PALE YELLOW; GLUCOSE, URINE (UA) NEGATIVE (NEGATIVE); KETONES,URINE 3+ (NEGATIVE); LEUKOCYTE ESTERASE ,URINE NEGATIVE (NEGATIVE); NITRITE,URINE NEGATIVE (NEGATIVE); PH,URINE 8 (4.5-8.0); PROTEIN,URINE NEGATIVE (NEGATIVE); UROBILINOGEN,URINE NORMAL MG/DL (0.0-1.0)
[2018-08-03] MEDS ORDERED: PRILOSEC OTC20 MG ORAL (02:24)
[2018-08-03] MEDS ORDERED: ZOFRAN4 MG ORAL (02:24)
--- NOTE | 2018-08-03 03:28 | NUR ---
ED Nurse Note: Pt cleared by health care Provider for discharge. DC instructions/prescription was given and explained to pt and verbalized understanding of teachings. All medical deviecs such as ID band removed. Pt is AAO x4, ambulatory and left with all personal belongings.
--- NOTE | 2018-08-03 04:54 | Emergency Room Report ---
History of Present Illness General Chief Complaint: Abdominal Pain Source: Patient, Medical Record Present Illness Allergies: Coded Allergies: No Known Allergies (Unverified , 03/04/18) Patient History Reviewed Nursing Documentation: PMH: Agreed; PSxH: Agreed Nursing Documentation-PMH Hx Cardiac Problems: No Hx Cancer: No Hx Gastrointestinal Problems: Yes - ABDOMINAL PAIN, VOMITING Hx Neurological Problems: No Review of Systems All Other Systems: negative except mentioned in HPI Physical Exam Vital Signs Date Time Temp Pulse Resp B/P (MAP) Pulse Ox O2 Delivery O2 Flow Rate FiO2 08/02/18 22:24 98.8 69 23 172/81 (111) 98 Room Air Sp02 EP Interpretation: reviewed, normal General Appearance: normal inspection, well appearing, no apparent distress, alert, GCS 15 Head: atraumatic ENT: normal ENT inspection, hearing grossly normal, normal voice Neck: normal inspection, full range of motion, supple, no bony tend Respiratory: normal inspection, lungs clear, normal breath sounds, no respiratory distress, no retraction, no wheezing Cardiovascular #1: regular rate, rhythm, no edema Gastrointestinal: normal inspection, normal bowel sounds, non tender, soft, no guarding, no hernia Genitourinary: no CVA tenderness Musculoskeletal: normal inspection, back normal, normal range of motion Neurologic: normal inspection, alert, oriented x3, responsive, ground crew lines person III-XII nml as tested, speech normal Psychiatric: normal inspection, judgement/insight normal, mood/affect normal Skin: normal inspection, normal color, no rash Medical Decision Making Diagnostic Impression: Primary Impression: Cyclic vomiting syndrome Labs Test 08/03/18 00:28 08/03/18 01:40 White Blood Count 9.0 K/UL (4.8-10.8) Red Blood Count 4.42 M/UL (4.70-6.10) Hemoglobin 14.9 G/DL (14.2-18.0) Hematocrit 42.1 % (42.0-52.0) Mean Corpuscular Volume 95 FL (80-99) Mean Corpuscular Hemoglobin 33.8 PG (27.0-31.0) Mean Corpuscular Hemoglobin Concent 35.5 G/DL (32.0-36.0) Red Cell Distribution Width 11.1 % (11.6-14.8) Platelet Count 381 K/UL (150-450) Mean Platelet Volume 5.8 FL (6.5-10.1) Neutrophils (%) (Auto) % (45.0-75.0) Lymphocytes (%) (Auto) % (20.0-45.0) Monocytes (%) (Auto) % (1.0-10.0) Eosinophils (%) (Auto) % (0.0-3.0) Basophils (%) (Auto) % (0.0-2.0) Prothrombin Time 10.3 SEC (9.30-11.50) Prothromb Time International Ratio 1.0 (0.9-1.1) Activated Partial Thromboplast Time 29 SEC (23-33) Sodium Level 136 MMOL/L (136-145) Potassium Level 3.3 MMOL/L (3.5-5.1) Chloride Level 96 MMOL/L (98-107) Carbon Dioxide Level 28 MMOL/L (21-32) Anion Gap 12 mmol/L (5-15) Blood Urea Nitrogen 10 mg/dL (7-18) Creatinine 1.2 MG/DL (0.55-1.30) Estimat Glomerular Filtration Rate > 60 mL/min (>60) Glucose Level 131 MG/DL (74-106) Calcium Level 10.1 MG/DL (8.5-10.1) Total Bilirubin 1.1 MG/DL (0.2-1.0) Direct Bilirubin 0.2 MG/DL (0.0-0.3) Aspartate Amino Transf (AST/SGOT) 16 U/L (15-37) Alanine Aminotransferase (ALT/SGPT) 30 U/L (12-78) Alkaline Phosphatase 69 U/L (46-116) Troponin I 0.000 ng/mL (0.000-0.056) Total Protein 8.5 G/DL (6.4-8.2) Albumin 4.6 G/DL (3.4-5.0) Globulin 3.9 g/dL Albumin/Globulin Ratio 1.2 (1.0-2.7) Lipase 76 U/L (73-393) Urine Color Pale yellow Urine Appearance Clear Urine pH 8 (4.5-8.0) Urine Specific Max 1.015 (1.005-1.035) Urine Protein Negative (NEGATIVE) Urine Glucose (UA) Negative (NEGATIVE) Urine Ketones 3+ (NEGATIVE) Urine Blood Negative (NEGATIVE) Urine Nitrite Negative (NEGATIVE) Urine Bilirubin Negative (NEGATIVE) Urine Urobilinogen Normal MG/DL (0.0-1.0) Urine Leukocyte Esterase Negative (NEGATIVE) Last Vital Signs Date Time Temp Pulse Resp B/P (MAP) Pulse Ox O2 Delivery O2 Flow Rate FiO2 08/03/18 03:23 Room Air 08/02/18 23:47 98.7 17 99 08/02/18 22:55 66 Disposition: HOME, SELF-CARE Condition: Stable Scripts Ondansetron (Zofran) 4 Mg Tablet 4 MG ORAL Q6H PRN for Nausea & Vomiting, #30 TAB 0 Refills Prov: Huy Acevedo MD 08/03/18 Omeprazole Magnesium (PRILOSEC OTC) 20 Mg Tablet.dr 20 MG ORAL DAILY, #30 TAB Prov: Huy Acevedo MD 08/03/18 Referrals: NOT CHOSEN IPA/,REFERRING (PCP) Patient Instructions: Abdominal Pain, Adult Huy Acevedo MD Aug 03, 2018 04:54
== END 2018-08-03 03:28 | disposition home or self-care (01) ==
LOC: EMR 22:35
DX: G43.A0 Cyclical vomiting, in migraine, not intractable (principal)
CPT/HCPCS: 36415; 80053; 81003; 82248; 83690; 84484; 85025; 85610; 85730; 86850; 86900; 86901; 96361; 96374; 96375; 99284; J2270; J2405; S0028